=== PATIENT | male | born 2000 | race Asian ===

== ENCOUNTER 2022-04-18 20:09 | Inpatient (IN) | payer OTHER ==
[~2022-04-18] VITALS: Ht 160 cm; Wt 68.5 kg
[2022-04-18 20:02] VITALS: BP 131/63
[2022-04-18] MEDS ORDERED: BISACODYL 10 MG RECTAL RECTAL SUPPOSITORY PR PRN (21:00)
[2022-04-18] MEDS ORDERED: OxyCODONE HCL 5 MG IR TABLET PO PRN (21:00)
[2022-04-18] MEDS ORDERED: DIAZEPAM 2 MG TABLET PO PRN (21:00)
[2022-04-18] MEDS ORDERED: DiphenhydrAMINE HCL 25 MG CAPSULE PO PRN (21:00)
[2022-04-18] MEDS ORDERED: ACETAMINOPHEN 325 MG TABLET PO PRN (21:15)
[2022-04-18] MEDS: ETHYL ALCOHOL 62% ANTISEPTIC NASAL SANITIZER 0.6 ML AMPUL NASAL SCH (21:26)
[2022-04-18] MEDS: CYCLOBENZAPRINE HCL 10 MG TABLET PO SCH (21:26)
[2022-04-18] MEDS: ENOXAPARIN SODIUM 40 MG/0.4 ML PF SYRINGE SQ SCH (21:27)
[2022-04-18] MEDS: QUEtiapine FUMARATE 25 MG TABLET PO SCH (22:38)
[2022-04-18] MEDS: ACETAMINOPHEN 500 MG TABLET PO SCH (23:12)
[2022-04-18] MEDS: IBUPROFEN 600 MG TABLET PO SCH (23:12)
[2022-04-18] MEDS: GABAPENTIN 300 MG CAPSULE PO SCH (23:13)
[2022-04-19] MEDS: IBUPROFEN 600 MG TABLET PO SCH ×4 (06:34→23:54)
[2022-04-19 07:30] LABS: BASOPHILS % (AUTO) 0.7 % (0.0-2.0); HEMATOCRIT 33.7 % (41-53); HEMOGLOBIN 11.2 g/dL (13.5-17.5); LYMPHOCYTES # (AUTO) 1.7 K/uL (1.0-4.8); LYMPHOCYTES % (AUTO) 27.7 % (22.0-44.0); MEAN CORPUSCULAR HEMOGLOBIN 29.1 pg (26.0-34.0); MEAN CORPUSCULAR HGB CONC 33.2 G/dL (31.0-37.0); MEAN CORPUSCULAR VOLUME 88 fL (80-100); MONOCYTES # (AUTO) 0.5 K/uL (0.1-1.0); MONOCYTES % (AUTO) 7.6 % (2.0-9.0); NEUTROPHILS # (AUTO) 3.8 K/uL (1.8-7.7); PLATELET COUNT (AUTO) 419 K/uL (150-450); RED BLOOD CELL COUNT(AUTO) 3.84 MIL/uL (4.50-5.90); RED CELL DISTRIBUTION WIDTH 14.9 % (11.5-14.5)
[2022-04-19 07:45] VITALS: BP 117/71
[2022-04-19 08:00] LABS: ALANINE AMINOTRANSFERASE 38 U/L (12-78); ALBUMIN 3.6 g/dL (3.4-5.0); ALKALINE PHOSPHATASE 115 U/L (46-116); ANION GAP 7 mmol/L (8-16); ASPARTATE AMINOTRANSFERASE 27 U/L (15-37); BILIRUBIN,TOTAL 0.5 mg/dL (0.1-1.0); CALCIUM, TOTAL 9.4 mg/dL (8.8-10.5); CARBON DIOXIDE 29 mmol/L (22-29); CHLORIDE 98 mmol/L (98-107); CREATININE 0.85 mg/dL (0.60-1.30); GLUCOSE,RANDOM 98 mg/dL (70-110); SODIUM SERUM 134 mmol/L (136-145); TOTAL PROTEIN, SERUM 7.7 g/dL (6.4-8.2); UREA NITROGEN, BLOOD 14 mg/dL (7-18)
[2022-04-19 08:01] LABS: GLOMERULAR FILTR. RATE CALC > 60 mL/min (>60)
[2022-04-19] MEDS: GABAPENTIN 300 MG CAPSULE PO SCH ×3 (08:40→23:53)
[2022-04-19] MEDS: ETHYL ALCOHOL 62% ANTISEPTIC NASAL SANITIZER 0.6 ML AMPUL NASAL SCH ×2 (08:40→21:17)
[2022-04-19] MEDS: ACETAMINOPHEN 500 MG TABLET PO SCH ×3 (08:40→23:52)
[2022-04-19] MEDS: DOCUSATE SODIUM 100 MG CAPSULE PO SCH ×2 (08:40→21:17)
[2022-04-19] MEDS: ESCITALOPRAM OXALATE 10 MG TABLET PO SCH (08:41)
[2022-04-19] MEDS: ENOXAPARIN SODIUM 40 MG/0.4 ML PF SYRINGE SQ SCH ×2 (08:41→21:18)
[2022-04-19] MEDS: CYCLOBENZAPRINE HCL 10 MG TABLET PO SCH ×3 (08:41→21:17)
[2022-04-19] MEDS: POLYETHYLENE GLYCOL 3350 17 GM PACKET PO SCH (08:41)
[2022-04-19 20:26] VITALS: BP 126/84
[2022-04-19] MEDS: SENNA 187 MG TABLET PO SCH (21:17)
[2022-04-19] MEDS: QUEtiapine FUMARATE 25 MG TABLET PO SCH (21:18)
[2022-04-20] MEDS: IBUPROFEN 600 MG TABLET PO SCH ×4 (06:15→23:22)
[2022-04-20] MEDS: ETHYL ALCOHOL 62% ANTISEPTIC NASAL SANITIZER 0.6 ML AMPUL NASAL SCH ×2 (07:33→20:50)
[2022-04-20] MEDS: DOCUSATE SODIUM 100 MG CAPSULE PO SCH ×2 (07:33→20:37)
[2022-04-20] MEDS: ESCITALOPRAM OXALATE 10 MG TABLET PO SCH (07:33)
[2022-04-20] MEDS: CYCLOBENZAPRINE HCL 10 MG TABLET PO SCH ×3 (07:33→20:44)
[2022-04-20] MEDS: GABAPENTIN 300 MG CAPSULE PO SCH ×3 (07:33→23:21)
[2022-04-20] MEDS: ACETAMINOPHEN 500 MG TABLET PO SCH ×3 (07:33→23:22)
[2022-04-20] MEDS: ENOXAPARIN SODIUM 40 MG/0.4 ML PF SYRINGE SQ SCH ×2 (07:34→20:44)
[2022-04-20] MEDS: POLYETHYLENE GLYCOL 3350 17 GM PACKET PO SCH (07:34)
[2022-04-20 08:20] VITALS: BP 131/72
[2022-04-20 20:00] VITALS: BP 142/70
[2022-04-20] MEDS: SENNA 187 MG TABLET PO SCH (20:37)
[2022-04-20] MEDS: QUEtiapine FUMARATE 25 MG TABLET PO SCH (20:45)
[2022-04-21] MEDS: IBUPROFEN 600 MG TABLET PO SCH ×4 (06:32→23:21)
[2022-04-21 08:00] VITALS: BP 125/76
[2022-04-21] MEDS: POLYETHYLENE GLYCOL 3350 17 GM PACKET PO SCH (08:34)
[2022-04-21] MEDS: ENOXAPARIN SODIUM 40 MG/0.4 ML PF SYRINGE SQ SCH ×2 (08:35→20:39)
[2022-04-21] MEDS: ETHYL ALCOHOL 62% ANTISEPTIC NASAL SANITIZER 0.6 ML AMPUL NASAL SCH ×2 (08:35→20:34)
[2022-04-21] MEDS: CYCLOBENZAPRINE HCL 10 MG TABLET PO SCH ×3 (08:35→20:33)
[2022-04-21] MEDS: ESCITALOPRAM OXALATE 10 MG TABLET PO SCH (08:35)
[2022-04-21] MEDS: GABAPENTIN 300 MG CAPSULE PO SCH ×3 (08:35→23:22)
[2022-04-21] MEDS: ACETAMINOPHEN 500 MG TABLET PO SCH ×3 (08:35→23:21)
[2022-04-21] MEDS: DOCUSATE SODIUM 100 MG CAPSULE PO SCH ×2 (08:36→20:33)
[2022-04-21] MEDS: QUEtiapine FUMARATE 25 MG TABLET PO SCH (20:33)
[2022-04-21] MEDS: SENNA 187 MG TABLET PO SCH (20:33)
[2022-04-21 21:20] VITALS: BP 129/76
[2022-04-22] MEDS: IBUPROFEN 600 MG TABLET PO SCH ×4 (06:19→23:06)
[2022-04-22 08:05] VITALS: BP 133/64
[2022-04-22] MEDS: ETHYL ALCOHOL 62% ANTISEPTIC NASAL SANITIZER 0.6 ML AMPUL NASAL SCH ×2 (08:26→20:44)
[2022-04-22] MEDS: ACETAMINOPHEN 500 MG TABLET PO SCH ×3 (08:26→23:06)
[2022-04-22] MEDS: ENOXAPARIN SODIUM 40 MG/0.4 ML PF SYRINGE SQ SCH ×2 (08:27→20:46)
[2022-04-22] MEDS: GABAPENTIN 300 MG CAPSULE PO SCH ×3 (08:27→23:06)
[2022-04-22] MEDS: POLYETHYLENE GLYCOL 3350 17 GM PACKET PO SCH (08:27)
[2022-04-22] MEDS: DOCUSATE SODIUM 100 MG CAPSULE PO SCH ×2 (08:27→20:45)
[2022-04-22] MEDS: ESCITALOPRAM OXALATE 10 MG TABLET PO SCH (08:27)
[2022-04-22] MEDS: CYCLOBENZAPRINE HCL 10 MG TABLET PO SCH ×3 (08:27→20:45)
[2022-04-22 20:00] VITALS: BP 149/85
[2022-04-22] MEDS: SENNA 187 MG TABLET PO SCH (20:45)
[2022-04-22] MEDS: QUEtiapine FUMARATE 25 MG TABLET PO SCH (20:46)
[2022-04-22] MEDS: MELATONIN 5 MG TABLET PO PRN (23:06)
[2022-04-23] MEDS: IBUPROFEN 600 MG TABLET PO SCH (06:26)
[2022-04-23] MEDS: GABAPENTIN 300 MG CAPSULE PO SCH ×3 (07:42→23:06)
[2022-04-23] MEDS: DOCUSATE SODIUM 100 MG CAPSULE PO SCH (07:43)
[2022-04-23] MEDS: CYCLOBENZAPRINE HCL 10 MG TABLET PO SCH ×3 (07:43→20:05)
[2022-04-23] MEDS: ACETAMINOPHEN 500 MG TABLET PO SCH (07:43)
[2022-04-23] MEDS: ETHYL ALCOHOL 62% ANTISEPTIC NASAL SANITIZER 0.6 ML AMPUL NASAL SCH ×2 (07:43→20:05)
[2022-04-23] MEDS: ESCITALOPRAM OXALATE 10 MG TABLET PO SCH (07:43)
[2022-04-23] MEDS: POLYETHYLENE GLYCOL 3350 17 GM PACKET PO SCH ×2 (07:44→08:01)
[2022-04-23] MEDS: ENOXAPARIN SODIUM 40 MG/0.4 ML PF SYRINGE SQ SCH ×2 (07:44→20:06)
[2022-04-23 08:22] VITALS: BP 118/68
[2022-04-23] MEDS ORDERED: IBUPROFEN 600 MG TABLET PO PRN (10:00)
[2022-04-23] MEDS: MULTIVITAMINS WITH MINERALS, THERAPEUTIC TABLET PO SCH (11:48)
[2022-04-23 13:30] LABS: ANION GAP 9 mmol/L (8-16); CALCIUM, TOTAL 9.3 mg/dL (8.8-10.5); CARBON DIOXIDE 29 mmol/L (22-29); CHLORIDE 98 mmol/L (98-107); GLUCOSE,RANDOM 109 mg/dL (70-110); SODIUM SERUM 136 mmol/L (136-145); UREA NITROGEN, BLOOD 16 mg/dL (7-18)
[2022-04-23 14:01] LABS: GLOMERULAR FILTR. RATE CALC > 60 mL/min (>60)
[2022-04-23] MEDS: ACETAMINOPHEN 325 MG TABLET PO SCH ×2 (16:15→23:07)
[2022-04-23] MEDS ORDERED: POLYETHYLENE GLYCOL 3350 17 GM PACKET PO PRN (16:45)
[2022-04-23] MEDS ORDERED: SENNA 187 MG TABLET PO PRN (16:45)
[2022-04-23] MEDS: QUEtiapine FUMARATE 25 MG TABLET PO SCH (20:06)
[2022-04-23] MEDS: DOCUSATE SODIUM 100 MG CAPSULE PO PRN (20:06)
[2022-04-23 20:30] VITALS: BP 135/80
[2022-04-23] MEDS: MELATONIN 5 MG TABLET PO PRN (23:07)
[2022-04-24] MEDS: GABAPENTIN 300 MG CAPSULE PO SCH ×3 (07:27→23:02)
[2022-04-24] MEDS: ACETAMINOPHEN 325 MG TABLET PO SCH ×3 (07:27→23:02)
[2022-04-24] MEDS: ETHYL ALCOHOL 62% ANTISEPTIC NASAL SANITIZER 0.6 ML AMPUL NASAL SCH ×2 (07:27→20:49)
[2022-04-24] MEDS: MULTIVITAMINS WITH MINERALS, THERAPEUTIC TABLET PO SCH (07:28)
[2022-04-24] MEDS: ESCITALOPRAM OXALATE 10 MG TABLET PO SCH (07:28)
[2022-04-24] MEDS: CYCLOBENZAPRINE HCL 10 MG TABLET PO SCH ×3 (07:28→20:49)
[2022-04-24] MEDS: ENOXAPARIN SODIUM 40 MG/0.4 ML PF SYRINGE SQ SCH ×2 (07:29→20:49)
[2022-04-24 09:10] VITALS: BP 117/70
[2022-04-24 20:00] VITALS: BP 127/74
[2022-04-24] MEDS: QUEtiapine FUMARATE 25 MG TABLET PO SCH (20:49)
[2022-04-24] MEDS: DOCUSATE SODIUM 100 MG CAPSULE PO PRN (20:52)
[2022-04-24] MEDS: MELATONIN 5 MG TABLET PO PRN (23:02)
[2022-04-25 07:30] VITALS: BP 129/76
[2022-04-25] MEDS: GABAPENTIN 300 MG CAPSULE PO SCH ×3 (08:46→23:28)
[2022-04-25] MEDS: ETHYL ALCOHOL 62% ANTISEPTIC NASAL SANITIZER 0.6 ML AMPUL NASAL SCH ×2 (08:47→21:10)
[2022-04-25] MEDS: ACETAMINOPHEN 325 MG TABLET PO SCH ×3 (08:47→23:28)
[2022-04-25] MEDS: ENOXAPARIN SODIUM 40 MG/0.4 ML PF SYRINGE SQ SCH ×2 (08:48→21:11)
[2022-04-25] MEDS: CYCLOBENZAPRINE HCL 10 MG TABLET PO SCH ×3 (08:48→21:11)
[2022-04-25] MEDS: MULTIVITAMINS WITH MINERALS, THERAPEUTIC TABLET PO SCH (08:48)
[2022-04-25] MEDS: ESCITALOPRAM OXALATE 10 MG TABLET PO SCH (08:49)
[2022-04-25 20:00] VITALS: BP 131/75
[2022-04-25] MEDS: QUEtiapine FUMARATE 25 MG TABLET PO SCH (21:11)
[2022-04-26] MEDS: CYCLOBENZAPRINE HCL 10 MG TABLET PO SCH ×3 (07:38→21:12)
[2022-04-26] MEDS: ENOXAPARIN SODIUM 40 MG/0.4 ML PF SYRINGE SQ SCH ×2 (07:38→21:12)
[2022-04-26] MEDS: GABAPENTIN 300 MG CAPSULE PO SCH ×3 (07:39→23:32)
[2022-04-26] MEDS: ETHYL ALCOHOL 62% ANTISEPTIC NASAL SANITIZER 0.6 ML AMPUL NASAL SCH ×2 (07:39→21:12)
[2022-04-26] MEDS: ACETAMINOPHEN 325 MG TABLET PO SCH ×3 (07:40→23:32)
[2022-04-26] MEDS: ESCITALOPRAM OXALATE 10 MG TABLET PO SCH (07:40)
[2022-04-26] MEDS: MULTIVITAMINS WITH MINERALS, THERAPEUTIC TABLET PO SCH (07:40)
[2022-04-26 08:47] VITALS: BP 121/76
[2022-04-26 13:10] LABS: BASOPHILS % (AUTO) 1.5 % (0.0-2.0); EOSINOPHILS % (AUTO) 1.8 % (1.0-6.0); HEMATOCRIT 38.8 % (41-53); HEMOGLOBIN 13.1 g/dL (13.5-17.5); LYMPHOCYTES # (AUTO) 1.9 K/uL (1.0-4.8); LYMPHOCYTES % (AUTO) 28.5 % (22.0-44.0); MEAN CORPUSCULAR HEMOGLOBIN 29.2 pg (26.0-34.0); MEAN CORPUSCULAR HGB CONC 33.9 G/dL (31.0-37.0); MEAN CORPUSCULAR VOLUME 86 fL (80-100); MONOCYTES # (AUTO) 0.6 K/uL (0.1-1.0); MONOCYTES % (AUTO) 9.3 % (2.0-9.0); NEUTROPHILS # (AUTO) 3.8 K/uL (1.8-7.7); NEUTROPHILS % (AUTO) 58.9 % (40.0-70.0); PLATELET COUNT (AUTO) 381 K/uL (150-450); RED CELL DISTRIBUTION WIDTH 14.4 % (11.5-14.5)
[2022-04-26 13:17] LABS: ANION GAP 11 mmol/L (8-16); CALCIUM, TOTAL 9.2 mg/dL (8.8-10.5); CARBON DIOXIDE 31 mmol/L (22-29); CHLORIDE 100 mmol/L (98-107); CREATININE 0.98 mg/dL (0.60-1.30); GLUCOSE,RANDOM 84 mg/dL (70-110); SODIUM SERUM 142 mmol/L (136-145); UREA NITROGEN, BLOOD 16 mg/dL (7-18)
[2022-04-26 13:18] LABS: GLOMERULAR FILTR. RATE CALC > 60 mL/min (>60)
[2022-04-26] MEDS ORDERED: QUET25TA PO (18:58)
[2022-04-26] MEDS ORDERED: GABA-1181 PO (18:58)
[2022-04-26] MEDS ORDERED: ESCI-8 PO (18:58)
[2022-04-26] MEDS ORDERED: MULT-1239 PO (18:58)
[2022-04-26] MEDS ORDERED: CYCL-448 PO (18:58)
[2022-04-26 20:00] VITALS: BP 128/77
[2022-04-26] MEDS ORDERED: APIX2.5T PO (20:15)
[2022-04-26] MEDS: QUEtiapine FUMARATE 25 MG TABLET PO SCH (21:12)
[2022-04-27] MEDS ORDERED: ACET-2247 PO (02:15)
[2022-04-27 07:25] VITALS: BP 127/74
[2022-04-27] MEDS: ETHYL ALCOHOL 62% ANTISEPTIC NASAL SANITIZER 0.6 ML AMPUL NASAL SCH (07:57)
[2022-04-27] MEDS: GABAPENTIN 300 MG CAPSULE PO SCH (07:57)
[2022-04-27] MEDS: ACETAMINOPHEN 325 MG TABLET PO SCH (07:57)
[2022-04-27] MEDS: CYCLOBENZAPRINE HCL 10 MG TABLET PO SCH (07:58)
[2022-04-27] MEDS: ENOXAPARIN SODIUM 40 MG/0.4 ML PF SYRINGE SQ SCH (07:58)
[2022-04-27] MEDS: ESCITALOPRAM OXALATE 10 MG TABLET PO SCH (07:58)
[2022-04-27] MEDS: MULTIVITAMINS WITH MINERALS, THERAPEUTIC TABLET PO SCH (07:58)
[2022-04-27] MEDS ORDERED: ESCI10 PO (11:03)
[2022-04-27] MEDS ORDERED: ACET325T51 PO (11:03)
[2022-04-27] MEDS ORDERED: GABA-1181 PO (11:03)
[2022-04-27] MEDS ORDERED: MULT-1239 PO (11:03)
[2022-04-27] MEDS ORDERED: QUET25TA36 PO (11:03)
== END 2022-04-27 12:30 | disposition home health service (06) | DRG 964 ==
LOC: 2WR 20:22
PROVIDERS: ADMIT Physical Medicine & Rehabilitation; ATTEND Physical Medicine & Rehabilitation
DX: S82.492A Other fracture of shaft of left fibula, initial encounter for closed fracture (principal); S72.91XA Unspecified fracture of right femur, initial encounter for closed fracture; S32.592A Other specified fracture of left pubis, initial encounter for closed fracture; E46 Unspecified protein-calorie malnutrition; S32.048A Other fracture of fourth lumbar vertebra, initial encounter for closed fracture; S32.058A Other fracture of fifth lumbar vertebra, initial encounter for closed fracture; S52.511A Displaced fracture of right radial styloid process, initial encounter for closed fracture; S82.092A Other fracture of left patella, initial encounter for closed fracture; E87.1 Hypo-osmolality and hyponatremia; F84.0 Autistic disorder; R45.851 Suicidal ideations; F33.2 Major depressive disorder, recurrent severe without psychotic features; S37.39XA Other injury of urethra, initial encounter; Q25.0 Patent ductus arteriosus; S82.292A Other fracture of shaft of left tibia, initial encounter for closed fracture; D75.839 Thrombocytosis, unspecified; D64.9 Anemia, unspecified; S62.101A Fracture of unspecified carpal bone, right wrist, initial encounter for closed fracture; V29.9XXA Motorcycle rider (driver) (passenger) injured in unspecified traffic accident, initial encounter; Y93.89 Activity, other specified; Y92.488 Other paved roadways as the place of occurrence of the external cause; Y99.8 Other external cause status; Z68.26 Body mass index [BMI] 26.0-26.9, adult
CPT/HCPCS: 80048; 80053; 85025; 87081; 93970; 97110; 97116; 97150; 97162; 97166; 97530; 97535; 99366; J1650; Q9967